=== PATIENT | male | born 1985 | race Caucasian/White ===

== ENCOUNTER 2016-09-24 16:37 | Emergency (ER) | payer SELFPAY ==
[~2016-09-24] VITALS: Ht 162.6 cm; Wt 73.0 kg
[2016-09-24 17:03] VITALS: BP 133/91
== END 2016-09-24 22:00 | disposition left against medical advice (07) ==
LOC: ER 21:48
DX: Z53.21 Procedure and treatment not carried out due to patient leaving prior to being seen by health care provider (principal)